=== PATIENT | male | born 1985 | race Caucasian/White ===

== ENCOUNTER 2024-07-18 19:00 | Emergency (ER) | payer OTHER, SELFPAY ==
[2024-07-18 19:08] VITALS: BP 142/78; PULSE 76; RESP 16; TEMP 36.7; O2SAT 99
--- NOTE | 2024-07-18 19:45 | ED.GENADUL_ITS ---
Discharge Plan Disposition Patient Disposition: Home Condition: Stable Discharge Details Clinical Impression: Abscess of foot Primary Care Provider: Unknown,Unknown ED Provider: Jocelyn Vences Home Meds and New Rx's Prescriptions: New levofloxacin 500 mg tablet 500 mg PO DAILY Qty: 10 0RF sulfamethoxazole-trimethoprim [Bactrim DS] 800-160 mg tablet 1 tab PO Q12H Qty: 20 0RF Discharge Instructions Instructions: Abscess Incision and Drainage (DC) Additional Instructions: You were seen in the emergency department today for evaluation of an injury to the sole of your foot that was consistent with an abscess. In our department a full physical examination performed, had an x-ray performed that did not show any obvious foreign bodies. You had a drainage performed that was consistent with abscess and was started on antibiotics. Please take all of these until they are gone even if you start to feel better. Please follow-up with your primary care provider in the next few days to discuss this visit and any symptoms that change, worsen, or persist. Thank you for allowing us to be part of your care. Discharge Data Discharge Date/Time-TO BE ENTERED AT DEPARTURE: 07/18/24 22:14 HPI General Mode of arrival: ambulatory . Date/Time Provider Initiated Documentation: 07/18/24 19:04 . Limitations to Documentation: no limitations . Information obtained by: patient, family and old records reviewed . HPI Narrative: HPI: This is a previously healthy 38-year-old male patient presenting for evaluation of a lump on his foot. The patient reports that 6 weeks ago he stepped on a large metal screw, went through the soles of his boot, and was removed by him and not evaluated at health care facility. He reports that he is up-to-date on his tetanus, and initially had some pain and swelling in that area. 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 He has not noted any drainage from the area, has not noted any surrounding redness or induration, has not had any fever, chills or other infectious symptoms. This is an isolated complaint. Exam: Gen: Awake and alert, in no apparent distress HEENT: Non-icteric sclera Neck: Supple Lungs: No apparent respiratory distress, normal respiratory effort. CV: Appears well perfused Abdomen: Non-distended MSK: Moves 4 extremities without apparent limitation in ROM Skin: Visualized skin without rashes, cyanosis. The patient has an approximately 1 cm firm swelling to the sole of the left foot just proximal to the third toe, fluctuant with no drainage or surrounding cellulitic changes. Neuro: Normal Gait, no obvious focal deficits or facial asymmetry. Speaks in full, clear sentences. Psych: Appropriate for situation. MDM: This is a 38-year-old male patient presenting for evaluation of a bump on the bottom of his foot after stepping on a screw. Differential includes but is not limited to abscess, no evidence of physical examination for cellulitis, certainly considered retained foreign body. The patient is reassuringly systemically well, and I have a low concern for acute abnormalities such as osteomyelitis, sepsis or bacteremia. The patient is up-to-date on his tetanus. We will obtain x-ray imaging, I did perform a bedside ultrasound that showed a small fluid collection. ED Course: Independent interpretation of the patient's x-ray shows no foreign bodies or evidence of osteomyelitis. Incision and drainage performed as noted below, scant purulent discharge appreciated concerning for abscess without associated cellulitis. Given the duration of symptoms and the mechanism, I did elect to start this patient on dual therapy with levofloxacin and Bactrim, and the patient was provided with his first doses here. At this time, the patient has had a full medical evaluation and is safe for discharge to home. They are hemodynamically stable, ambulatory, and tolerating PO. They are understanding of the follow-up plan and return precautions. They left our facility without incident. Jocelyn Vences MD Related Data Home Medications ?Medication ?Instructions ?Recorded ?Confirmed levofloxacin 500 mg tablet 500 mg PO DAILY #10 tabs 07/18/24 sulfamethoxazole 800 1 tab PO Q12H #20 tabs 07/18/24 mg-trimethoprim 160 mg tablet (Bactrim DS) Previous Rx's ?Medication ?Instructions ?Recorded levofloxacin 500 mg tablet 500 mg PO DAILY #10 tabs 07/18/24 sulfamethoxazole 800 1 tab PO Q12H #20 tabs 07/18/24 mg-trimethoprim 160 mg tablet (Bactrim DS) Allergies Allergy/AdvReac Type Severity Reaction Status Date / Time No Known Allergies Allergy Unverified 07/18/24 19:09 General Stated Complaint: Laceration KHRIS: 4 Course Vital Signs Vital signs: Vital Signs Temperature 36.7 C 07/18/24 19:08 Pulse 76 07/18/24 19:08 Respiratory Rate 16 07/18/24 19:08 Blood Pressure 142/78 H 07/18/24 19:08 Pulse Oximetry 99 07/18/24 19:08 Temperature 36.7 C 07/18/24 19:08 Pulse 76 07/18/24 19:08 Respiratory Rate 16 07/18/24 19:08 Respiratory Effort Normal 07/18/24 19:10 Blood Pressure 142/78 H 07/18/24 19:08 Pulse Oximetry 99 07/18/24 19:08 Pain Level 8 07/18/24 19:08 Comment when stepping on it 07/18/24 19:08 Procedures Abscess I/D Site: Foot Side (if applicable): Left Local Anesthetic: Lidocaine 2% Amount of anesthesia used (mL): 1 Technique: Incised with #11 Blade Amount of fluid expressed (mL): 0.5 Irrigation: No Packing used?: None Complications: Pain Medical Decision Making Quality:SDOH Health Related Social Needs: No Data to Display PFSH All Active Problems (Updated 07/18/24 @ 22:01 by Jocelyn Vences MD) Abscess of foot (Acute) Social History Smoking/Tobacco Use Status: Never Smoking risk assessment performed?: Yes Alcohol Intake: never Drug use: Never Do you feel safe at home: Yes Do you feel safe in your relationship?: Yes
[2024-07-18 20:06] VITALS: BP 130/74; PULSE 75
--- NOTE | 2024-07-18 21:30 | DI.RAD_ITS ---
Exam(s) XR FOOT LT LIMITED EXAM: XR FOOT LT LIMITED CLINICAL HISTORY: Eval foreign body, osteo just proximal to 3rd toe. TECHNIQUE: 2D digital imaging was performed. COMPARISON: No exams were available for comparison FINDINGS: 2 views-limited two view study-AP and lateral. There is overlapping of the bones/phalanges of the toes on the lateral view. No evidence of fracture or diastasis of the Lisfranc joint. Bone density normal. No osseous lesions nor erosions. Corticated smokes S3 ossicles noted dorsal to the distal talus. Great toe metatarsop halangeal joint appears unremarkable as do the other MTP joints. The more lateral the 2 sesamoid bon es subjacent to the great toe metatarsal head is noted to be bipartite. No evidence of radiopaque foreign body. No soft tissue gas. No radiographic evidence of osteomyelit is. IMPRESSION: No significant radiographic findings in the foot. Given the apparent clinical findings related to th e 3rd toe, if clinically indicated additional dedicated 3 radiographic views of this toe can be perfo rmed for added sensitivity and specificity DATA REPOSITORY: RADIATION DOSE DELIVERED:
[2024-07-18] MEDS: Lidocaine 1% Multi-Dose 50 ML VIAL (22:07)
[2024-07-18] MEDS: Sulfameth/Trimeth DS, 2 TABS/BTL 1 TAB PO (22:07)
[2024-07-18] MEDS: Sulfameth/Trimeth DS TAB 1 TAB PO (22:07)
[2024-07-18] MEDS: levoFLOXacin 500 MG TAB PO ×2 (22:07)
[2024-07-18 22:12] VITALS: BP 127/69; PULSE 69; RESP 16; O2SAT 100
--- NOTE | 2024-07-18 22:30 | DI.VRAD_ITS ---
PROCEDURE INFORMATION: Exam: XR Left Foot Exam date and time: 07/18/2024 9:28 PM Age: 38 years old Clinical indication: Other: Eval foreign body, osteo just proximal to 3rd toe TECHNIQUE: Imaging protocol: Radiologic exam of the left foot. Views: 1 or 2 views. COMPARISON: No relevant prior studies available. FINDINGS: Bones/joints: Bipartite medial hallux sesamoid. No acute fracture or dislocation. Well corticated ossicle at the dorsal aspect of the talar head, might be posttraumatic or accessory ossicle. No radiographic changes of osteomyelitis. Soft tissues: No soft tissue emphysema. IMPRESSION: No radiopaque foreign body. No radiographic changes of osteomyelitis. Dictated and Authenticated by: Roni Partida MD. Ordering:HECTOR Beyer MD
== END 2024-07-18 22:14 | disposition home or self-care (01) ==
PROVIDERS: Emergency Provider Emergency Medicine
DX: L02.612 Cutaneous abscess of left foot (principal); W45.0XXA Nail entering through skin, initial encounter
CPT/HCPCS: 10060; 87077; 99283; 73620; 87070; 87186; 87205